=== PATIENT | male | born 1965 | race Caucasian/White ===

== ENCOUNTER 2020-03-17 14:17 | Inpatient (IN) | payer OTHER ==
--- OUTSIDE RECORDS SUMMARY | 2020-03-17 14:26 | XMS ---
:1965 Author Organization [facility] Support Name Relationship Address Phone UE Unavailable Unavailable Unavailable EHSAN COOLEY SISTER [address] [place], [place] Re-disclosure Warning The records that you are about to access may contain information from federally- assisted alcohol or drug abuse programs. If such information is present, then the following federally mandated warning applies: This information has been disclosed to you from records protected by federal confidentiality rules (42 CFR part 2). The federal rules prohibit you from making any further disclosure of this information unless further disclosure is expressly permitted by the written consent of the person to whom it pertains or as otherwise permitted by 42 CFR part 2. A general authorization for the release of medical or other information is NOT sufficient for this purpose. The Federal rules restrict any use of the information to criminally investigate or prosecute any alcohol or drug abuse patient.The records that you are about to access may contain highly sensitive health information, the redisclosure of which is protected by Article 27-F of the [facility] Public Health law. If you continue you may haveaccess to information: Regarding HIV / AIDS; Provided by facilities licensed or operated by the [facility] Office of Mental Health; or Provided by the [facility] Office for People With Developmental Disabilities. If such information is present, then the following [facility] mandated warning applies: This information has been disclosed to you from confidential records which are protected by state law. State law prohibits you from making any further disclosure of this information without the specific written consent of the person to whom it pertains, or as otherwise permitted by law. Any unauthorized further disclosure in violation of state law may result in a fine or retirement sentence or both. A general authorization for the release of medical or other information is NOT sufficient authorization for further disclosure. Insurance Providers Payer name Policy type Policy ID Covered Covered libertarian's Policy P ramone / Coverage libertarian ID relationship to [employer] ormation type burch BEACON [id number] [employer]
--- NOTE | 2020-03-17 14:38 | BHS.RME ---
Substance Use & Tx History - Substance Use History Alcohol Substance amount: 4 quarts malt liquor Frequency of use: Daily Substance route: Oral Date of Last Use: 03/17/20 Cocaine-Crack Substance amount: $100 Frequency of use: Daily Substance route: Smoking Date of Last Use: 03/17/20 Nicotine Substance amount: one half pack Frequency of use: Daily Substance route: Smoking Date of Last Use: 03/17/20 Physical/Psych/Mental Status - Behavior General Behavior: Increased activity (restlessness, agitation) Eye Contact: Normal - Cooperativeness Cooperativeness: Cooperative - Thinking Thought Processes: Tight Thought content: Future oriented - Physical Health Problems Is patient presently having any pain?: No Does patient presently have any injuries (include location): No Does patient currently have a fever: No CIWA Nausea/Vomitin-No Nausea/No Vomiting Muscle Tremors: 1-None Visible, but [place] Anxiety: 3 Agitation: 4-Moderately Restless Paroxysmal Sweats: No Perspiration Orientation: 1-Uncertain about Date Tacttile Disturbances: 0-None Auditory Disturbances: 0-None Visual Disturbances: 0-None Headache: 3-Moderate CIWA-Ar Total Score: 12
[2020-03-17 15:53] VITALS: BMI 17.9
--- OUTSIDE RECORDS SUMMARY | 2020-03-17 16:14 | XMS ---
:1965 Author Organization [facility] Support Name Relationship Address Phone UE Unavailable Unavailable Unavailable EHSAN COOLEY SISTER [address] [place], [place] Re-disclosure Warning The records that [...] is protected by Article 27-F of the [facility] Public Health law. If you continue you may haveaccess to information: Regarding HIV / AIDS; Provided by facilities licensed or operated by the [facility] Office of Mental Health; or Provided by the [facility] Office for People With Developmental Disabilities. If such information is present, then the following [facility] mandated warning applies: This information has been [...] law may result in a fine or chcf sentence or both. A general authorization for the release of medical or other information is NOT sufficient authorization for further disclosure. Insurance Providers Payer name Policy type Policy ID Covered Covered constitution party's Policy P ramone / Coverage constitution party ID relationship to [employer] type burch BEACON [id number] [address] [employer]
--- NOTE | 2020-03-17 16:43 | HP ---
CIWA Score Nausea/Vomitin-No Nausea/No Vomiting Muscle Tremors: 1-None Visible, but [place] Anxiety: 3 Agitation: 4-Moderately Restless Paroxysmal Sweats: No Perspiration Orientation: 1-Uncertain about Date Tacttile Disturbances: 0-None Auditory Disturbances: 0-None Visual Disturbances: 0-None Headache: 3-Moderate CIWA-Ar Total Score: 12 - Admission Criteria OASAS Guidelines: Admission for Medically Managed Detox: Requires at least one of the followin. CIWA greater than 12 2. Seizures within the past 24 hours 3. Delirium tremens within the past 24 hours 4. Hallucinations within the past 24 hours 5. Acute intervention needed for co occurring medical disorder 6. Acute intervention needed for co occurring psychiatric disorder 7. Severe withdrawal that cannot be handled at a lower level of care (continued vomiting, continued diarrhea, abnormal vital signs) requiring intravenous medication and/or fluids 8. Admitting History and Physical - Admission Chief Complaint: I want to get my life back on track. History of Present Illness: Mr. Ortez is a 54 with history of HTN ( non complaint with medication), angina, alcohol, crack, and nicotine use disorder presents here for alcohol detox. Started drinking alcohol since age 16 years old. Currently drinking 4 quarts of malt liquor daily, last drink was earlier this morning. Denies seizure or blackout but admits to eyeopener. Patient currently enrolled in [facility] at [facility]. Also admits to using $100 of Crack (smoking) daily. History Source: Patient Limitations to Obtaining History: No Limitations - Past Medical History Cardiovascular: Yes: HTN (Angina) - Past Surgical History Past Surgical History: Yes: None - Smoking History Smoking history: Current every day smoker Have you smoked in the past 12 months: Yes Aproximately how many cigarettes per day: 10 - Alcohol/Substance Use Hx Alcohol Use: Yes Number of Drinks Daily: 4 History of Substance Use: reports: Cocaine - Social History Usual Living Arrangement: Yes: Alone (homeless) Do you think of yourself as: Straight/Heterosexual ADL: Independent History of Recent Travel: No Admission ROS [facility] Allergies/Adverse Reactions: Allergies Allergy/AdvReac Type Severity Reaction Status Date / Time No Known Allergies Allergy Verified 03/17/20 15:47 History of Present Illness: Mr. Ortez is a 54 with history of HTN ( non complaint with medication), angina, alcohol, crack, and nicotine use disorder presents here for alcohol detox. Started drinking alcohol since age 16 years old. Currently drinking 4 quarts of malt liquor daily, last drink was earlier this morning. Denies seizure or blackout but admits to eyeopener. Patient currently enrolled in [facility] at [facility]. Also admits to using $100 of Crack (smoking) daily. Exam Limitations: No Limitations - Ebola screening Have you traveled outside of the country in the last 21 days: No Have you had contact with anyone from an Ebola affected area: No Have you been sick,other than usual withdrawal symptoms: No Do you have a fever: No - Review of Systems Constitutional: Weakness, Unintentional Wgt. Loss, Unexplained wgt Loss (lost about 40 pounds) EENT: reports: No Symptoms Reported Respiratory: reports: No Symptoms reported GI: reports: Diarrhea, Poor Appetite : reports: No Symptoms Reported Musculoskeletal: reports: No Symptoms Reported Integumentary: reports: No Symptoms Reported Neuro: reports: Headache, Tremors Endocrine: reports: No Symptoms Reported Psychiatric: reports: Orientated x3, Anxious Other Systems: Reviewed and Negative Patient History - Patient Medical History Hx Asthma: No Hx Chronic Obstructive Pulmonary Disease (COPD): No Hx Cardiac Disorders: Yes (Hx angina) Hx Hypertension: Yes (no meds.) Hx Seizures: No Hx Diabetes: No Hx Gastrointestinal Disorders: No Hx Genitourinary Disorders: No Hx Sexually Transmitted Disorders: No Hx Renal Disease (ESRD): No Hx Depression: No Hx Suicide Attempt: No Hx Schizophrenia: No - Patient Surgical History Past Surgical History: No - PPD History Previous Implant?: Yes Documented Results: Negative w/o proof Implanted On Prior R Admission?: No PPD to be Administered?: Yes - Reproductive History Patient is a Female of Child Bearing Age (11 -55 yrs old): No Patient : No (male) - Smoking Cessation Smoking history: Current every day smoker Have you smoked in the past 12 months: Yes Aproximately how many cigarettes per day: 10 Hx Chewing Tobacco Use: No Initiated information on smoking cessation: Yes 'Breaking Loose' booklet given: 03/17/20 - Substances abused Alcohol Other (specify): malt liquor Substance route: Oral Frequency: Daily Amount used: 4 quarts Age of first use: 16 Date of last use: 03/17/20 Crack Substance route: Smoking Frequency: Daily Amount used: $100 Age of first use: 20 Date of last use: 03/17/20 Admission Physical Exam [facility] - Vital Signs Vital Signs: Vital Signs - 24 hr 03/17/20 15:51 Temperature 97.3 F L Pulse Rate 54 L Respiratory 12 Rate Blood Pressure 135/97 - Physical General Appearance: Yes: Appropriately Dressed, Cachetic, Thin, Irritable, Anxious HEENTM: Yes: Within Normal Limits, EOMI, Normocephalic Respiratory: Yes: Within Normal Limits Neck: Yes: Within Normal Limits Breast: Yes: Breast Exam Deferred Cardiology: Yes: Regular Rhythm, Regular Rate, S1, S2 Abdominal: Yes: Flat, Increased Bowel Sounds Genitourinary: Yes: Within Normal Limits Back: Yes: Within Normal Limits, Normal Inspection Musculoskeletal: Yes: Within Normal Limits, full range of Motion Extremities: Yes: Within Normal Limits, Normal Capillary Refill Neurological: Yes: Within Normal Limits, Fully Oriented, Motor Strength 5/5, Normal Mood/Affect Integumentary: Yes: Within Normal Limits, Normal Color - Diagnostic (1) Alcohol dependence with uncomplicated withdrawal Current Visit: Yes Status: Acute (2) Cocaine dependence Current Visit: Yes Status: Chronic (3) Nicotine dependence Current Visit: Yes Status: Chronic (4) Opioid dependence on agonist therapy Current Visit: Yes Status: Chronic Cleared for Admission [facility] - Detox or Rehab [facility] Level of Care: Medically Managed Detox Regimen/Protocol: Librium Claeared for Rehab Admission: No Breathalyzer - Breathalyzer Breathalyzer: 0 Urine Drug Screen - Test Device Lot number: [id number] Expiration date: 09/09/21 - Control Is test valid?: Yes - Results Drug screen NEGATIVE: No Urine drug screen results: THC-Marijuana, NICHOLAS-Cocaine, MTD-Methadone Inpatient Rehab Admission - Rehab Decision to Admit Inpatient rehab admission?: No
[2020-03-17] MEDS ORDERED: IBUPROFEN 400 MG TABLET (FP) PO PRN (17:00)
[2020-03-17] MEDS ORDERED: NICOTINE POLACRILEX 2 MG GUM BUC PRN (17:00)
[2020-03-17] MEDS ORDERED: BISMUTH SUBSALICYLATE 524 MG/30 ML UD PO PRN (17:00)
[2020-03-17] MEDS ORDERED: ACETAMINOPHEN 325 MG TABLET (FP) PO PRN ×2 (17:00)
[2020-03-17] MEDS ORDERED: MENTHOL/PHENOL 1 EACH UD MM PRN (17:00)
[2020-03-17] MEDS ORDERED: MAGNESIUM CITRATE 300 ML BOTTLE PO PRN (17:00)
[2020-03-17] MEDS ORDERED: ONDANSETRON *ODT* 4 MG TABLET SL PRN (17:00)
[2020-03-17] MEDS ORDERED: MAG HYDROX/AL HYDROX/SIMETH 30 ML UNIT-DOSE CUP PO PRN (17:00)
[2020-03-17] MEDS ORDERED: chlordiazePOXIDE HCL 25 MG CAPSULE PO PRN (17:00)
[2020-03-17] MEDS ORDERED: MAGNESIUM HYDROX 2400MG/30ML ORAL SUSPENSION 30 ML CUP PO PRN (17:00)
[2020-03-17] MEDS ORDERED: hydrOXYzine PAMOATE 25 MG CAPSULE (FP) PO PRN (17:00)
[2020-03-17] MEDS ORDERED: METHOCARBAMOL 500 MG TABLET PO PRN (17:00)
[2020-03-17] MEDS: chlordiazePOXIDE HCL 25 MG CAPSULE PO SCH ×2 (18:55→22:11)
[2020-03-17] MEDS: MELATONIN 5 MG TABLETS PO SCH (22:12)
[2020-03-17] MEDS: THIAMINE HCL 100 MG TABLET (FP) PO SCH (22:13)
[2020-03-18] MEDS: chlordiazePOXIDE HCL 25 MG CAPSULE PO SCH ×4 (07:09→22:54)
--- NOTE | 2020-03-18 08:51 | PN ---
S CIWA - CIWA Score Nausea/Vomitin Muscle Tremors: 3 Anxiety: 3 Agitation: 3 Paroxysmal Sweats: 1-Minimal Palms Moist Orientation: 0-Oriented Tacttile Disturbances: 1-Very Mild Itch/Numbness Auditory Disturbances: 0-None Visual Disturbances: 0-None Headache: 2-Mild CIWA-Ar Total Score: 15 BHS Progress Note (SOAP) Subjective: alert,irritable,anxious,interrupted sleep,tremor,aching pain Objective: 03/18/20 13:00 Vital Signs Temperature 96.9 F L 03/18/20 08:36 Pulse Rate 55 L 03/18/20 08:36 Respiratory Rate 16 03/18/20 08:36 Blood Pressure 120/54 L 03/18/20 08:36 O2 Sat by Pulse Oximetry (%) 97 03/18/20 08:36 Laboratory Last Values WBC 8.7 K/mm3 (4.0-10.0) 03/18/20 07:00 RBC 3.82 M/mm3 (4.00-5.60) L 03/18/20 07:00 Hgb 11.9 GM/dL (11.7-16.9) 03/18/20 07:00 Hct 35.2 % (35.4-49) L 03/18/20 07:00 MCV 92.1 fl (80-96) 03/18/20 07:00 MCH 31.1 pg (25.7-33.7) 03/18/20 07:00 MCHC 33.8 g/dl (32.0-35.9) 03/18/20 07:00 RDW 14.1 % (11.9-15.9) 03/18/20 07:00 Plt Count 181 K/MM3 (134-434) 03/18/20 07:00 MPV 9.2 fl (7.5-11.1) 03/18/20 07:00 Sodium 140 mmol/L (136-145) 03/18/20 07:00 Potassium 4.8 mmol/L (3.5-5.1) 03/18/20 07:00 Chloride 106 mmol/L (98-107) 03/18/20 07:00 Carbon Dioxide 30 mmol/L (21-32) 03/18/20 07:00 Anion Gap 3 MMOL/L (8-16) L 03/18/20 07:00 BUN 27.0 mg/dL (7-18) H 03/18/20 07:00 Creatinine 0.7 mg/dL (0.55-1.3) 03/18/20 07:00 Est GFR (CKD-EPI)AfAm 124.00 03/18/20 07:00 Est GFR (CKD-EPI)NonAf 106.99 03/18/20 07:00 Random Glucose 86 mg/dL (74-106) 03/18/20 07:00 Calcium 8.3 mg/dL (8.5-10.1) L 03/18/20 07:00 Total Bilirubin 0.2 mg/dL (0.2-1) 03/18/20 07:00 AST 40 U/L (15-37) H 03/18/20 07:00 ALT 45 U/L (13-61) 03/18/20 07:00 Alkaline Phosphatase 72 U/L (45-117) 03/18/20 07:00 Total Protein 5.5 g/dl (6.4-8.2) L 03/18/20 07:00 Albumin 2.9 g/dl (3.4-5.0) L 03/18/20 07:00 Syphilis Serology Non-reactive (NONREACTIVE) 03/17/20 07:00 HIV Ag/Ab Combo Qual Negative (NEGATIVE) 03/18/20 07:00 Assessment: 03/18/20 13:01 withdrawal symptom Plan: continue detox librium regimen,bun 27 probably due to dehydration,encourage oral fluid,repeat bun in am
[2020-03-18] MEDS ORDERED: METHADONE HCL 10 MG TABLET PO SCH (10:00)
[2020-03-18] MEDS ORDERED: METHADONE HCL 40 MG DISPERSABLE TABLET ONE (10:07)
[2020-03-18] MEDS ORDERED: METHADONE HCL 10 MG TABLET ONE (10:07)
[2020-03-18] MEDS: METHADONE 120 MG, METHADONE 20 MG PO SCH (10:08)
[2020-03-18] MEDS: PRENATAL VITAMINS W/ FOLIC ACID TABLET (FP) PO SCH (10:11)
[2020-03-18] MEDS: NICOTINE 7 MG/24 HOURS TOPICAL PATCH TD SCH (10:11)
[2020-03-18 10:13] LABS: HEMATOCRIT 35.2 % (35.4-49); HEMOGLOBIN 11.9 GM/dL (11.7-16.9); MCH 31.1 pg (25.7-33.7); MCHC 33.8 g/dl (32.0-35.9); MEAN CELL VOLUME 92.1 fl (80-96); MEAN PLT VOLUME 9.2 fl (7.5-11.1); PLATELET COUNT 181 K/MM3 (134-434); RBC 3.82 M/mm3 (4.00-5.60); RDW 14.1 % (11.9-15.9); WHITE BLOOD COUNT 8.7 K/mm3 (4.0-10.0)
[2020-03-18 10:21] LABS: ALBUMIN 2.9 g/dl (3.4-5.0); BILIRUBIN,TOTAL 0.2 mg/dL (0.2-1); CALCIUM 8.3 mg/dL (8.5-10.1); CREATININE 0.7 mg/dL (0.55-1.3); POTASSIUM 4.8 mmol/L (3.5-5.1); TOT PROT 5.5 g/dl (6.4-8.2)
--- NOTE | 2020-03-18 13:39 | EKG ---
Test Reason : Blood Pressure : / mmHG Vent. Rate : 049 BPM Atrial Rate : 049 BPM P-R Int : 118 ms QRS Dur : 088 ms QT Int : 530 ms P-R-T Axes : 078 077 081 degrees QTc Int : 478 ms SINUS BRADYCARDIA WITH PREMATURE SUPRAVENTRICULAR COMPLEXES OTHERWISE NORMAL ECG NO PREVIOUS ECGS AVAILABLE Confirmed by DELIA HARDY, JAYDA ([id number]) on 03/18/2020 1:39:16 PM Referred By: Confirmed By:JAYDA LIN MD
[2020-03-18] MEDS: THIAMINE HCL 100 MG TABLET (FP) PO SCH (22:54)
[2020-03-18] MEDS: MELATONIN 5 MG TABLETS PO SCH (22:54)
[2020-03-19] MEDS ORDERED: METHADONE HCL 10 MG TABLET ONE (04:16)
[2020-03-19] MEDS ORDERED: METHADONE HCL 40 MG DISPERSABLE TABLET ONE (04:16)
[2020-03-19] MEDS: chlordiazePOXIDE HCL 25 MG CAPSULE PO SCH ×4 (05:23→23:11)
[2020-03-19] MEDS: METHADONE 120 MG, METHADONE 20 MG PO SCH (05:23)
--- NOTE | 2020-03-19 10:29 | PN ---
[facility] CIWA - CIWA Score Nausea/Vomitin-Mild Nausea/No Vomiting Muscle Tremors: 2 Anxiety: 3 Agitation: 3 Paroxysmal Sweats: No Perspiration Orientation: 0-Oriented Tacttile Disturbances: 1-Very Mild Itch/Numbness Auditory Disturbances: 0-None Visual Disturbances: 0-None Headache: 2-Mild CIWA-Ar Total Score: 12 S Progress Note (SOAP) Subjective: alert,irritable,anxious,interrupted sleep,tremor,aching pain,interrupted sleep Objective: 03/19/20 10:24 Vital Signs Temperature 97.1 F L 03/19/20 08:40 Pulse Rate 53 L 03/19/20 08:40 Respiratory Rate 18 03/19/20 08:40 Blood Pressure 148/89 03/19/20 08:40 O2 Sat by Pulse Oximetry (%) 95 03/19/20 08:40 Laboratory Last Values WBC 8.7 K/mm3 (4.0-10.0) 03/18/20 07:00 RBC 3.82 M/mm3 (4.00-5.60) L 03/18/20 07:00 Hgb 11.9 GM/dL (11.7-16.9) 03/18/20 07:00 Hct 35.2 % (35.4-49) L 03/18/20 07:00 MCV 92.1 fl (80-96) 03/18/20 07:00 MCH 31.1 pg (25.7-33.7) 03/18/20 07:00 MCHC 33.8 g/dl (32.0-35.9) 03/18/20 07:00 RDW 14.1 % (11.9-15.9) 03/18/20 07:00 Plt Count 181 K/MM3 (134-434) 03/18/20 07:00 MPV 9.2 fl (7.5-11.1) 03/18/20 07:00 Sodium 140 mmol/L (136-145) 03/18/20 07:00 Potassium 4.8 mmol/L (3.5-5.1) 03/18/20 07:00 Chloride 106 mmol/L (98-107) 03/18/20 07:00 Carbon Dioxide 30 mmol/L (21-32) 03/18/20 07:00 Anion Gap 3 MMOL/L (8-16) L 03/18/20 07:00 BUN 20.7 mg/dL (7-18) H 03/19/20 07:50 Creatinine 0.7 mg/dL (0.55-1.3) 03/18/20 07:00 Est GFR (CKD-EPI)AfAm 124.00 03/18/20 07:00 Est GFR (CKD-EPI)NonAf 106.99 03/18/20 07:00 Random Glucose 86 mg/dL (74-106) 03/18/20 07:00 Calcium 8.3 mg/dL (8.5-10.1) L 03/18/20 07:00 Total Bilirubin 0.2 mg/dL (0.2-1) 03/18/20 07:00 AST 40 U/L (15-37) H 03/18/20 07:00 ALT 45 U/L (13-61) 03/18/20 07:00 Alkaline Phosphatase 72 U/L (45-117) 03/18/20 07:00 Total Protein 5.5 g/dl (6.4-8.2) L 03/18/20 07:00 Albumin 2.9 g/dl (3.4-5.0) L 03/18/20 07:00 Syphilis Serology Non-reactive (NONREACTIVE) 03/17/20 07:00 COVID-19 ([facility]) Not detected (Not Detected) 03/17/20 16:00 HIV Ag/Ab Combo Qual Negative (NEGATIVE) 03/18/20 07:00 03/19/20 10:28 repeat bun is 20.7 Assessment: 03/19/20 10:29 withdrawal symptom Plan: continue detox lirium regimen,encourage oral fluid,continue methadone maintenance 140 mgs/day
[2020-03-19] MEDS: NICOTINE 7 MG/24 HOURS TOPICAL PATCH TD SCH (10:31)
[2020-03-19] MEDS: PRENATAL VITAMINS W/ FOLIC ACID TABLET (FP) PO SCH (10:31)
[2020-03-19] MEDS: THIAMINE HCL 100 MG TABLET (FP) PO SCH (23:11)
[2020-03-19] MEDS: MELATONIN 5 MG TABLETS PO SCH (23:11)
[2020-03-20] MEDS ORDERED: chlordiazePOXIDE HCL 10 MG CAPSULE PO PRN
[2020-03-20] MEDS ORDERED: METHADONE HCL 40 MG DISPERSABLE TABLET ONE (03:43)
[2020-03-20] MEDS ORDERED: METHADONE HCL 10 MG TABLET ONE (03:43)
[2020-03-20] MEDS: METHADONE 120 MG, METHADONE 20 MG PO SCH (05:09)
[2020-03-20] MEDS: chlordiazePOXIDE HCL 10 MG CAPSULE PO SCH ×4 (05:10→22:29)
[2020-03-20] MEDS: NICOTINE 7 MG/24 HOURS TOPICAL PATCH TD SCH (10:11)
[2020-03-20] MEDS: PRENATAL VITAMINS W/ FOLIC ACID TABLET (FP) PO SCH (10:11)
--- NOTE | 2020-03-20 16:37 | PN ---
[facility] CIWA - CIWA Score Nausea/Vomitin-No Nausea/No Vomiting Muscle Tremors: None Anxiety: 4-Mod. Anxious/Guarded Agitation: 4-Moderately Restless Paroxysmal Sweats: 2 Orientation: 0-Oriented Tacttile Disturbances: 2-Mild Itch/Numbness/Burn Auditory Disturbances: 0-None Visual Disturbances: 0-None Headache: 0-None Present CIWA-Ar Total Score: 12 S Progress Note (SOAP) Subjective: Anxious, Restless, Interrupted sleep, Body Aches. Objective: Patient A & O X 3, Observed Ambulating on Detox Unit Unassisted. In No Acute Distress. 03/20/20 16:35 Vital Signs Temperature 97.8 F 03/20/20 12:20 Pulse Rate 73 03/20/20 12:20 Respiratory Rate 18 03/20/20 12:20 Blood Pressure 134/81 03/20/20 12:20 O2 Sat by Pulse Oximetry (%) 95 03/20/20 12:20 Laboratory Tests 03/17/20 03/17/20 03/18/20 07:00 16:00 07:00 WBC RBC Hgb Hct MCV MCH MCHC RDW Plt Count MPV Sodium Potassium Chloride Carbon Dioxide Anion Gap BUN Creatinine Est GFR (CKD-EPI)AfAm Est GFR (CKD-EPI)NonAf Random Glucose Calcium Total Bilirubin AST ALT Alkaline Phosphatase Total Protein Albumin Syphilis Serology Non-reactive COVID-19 ([facility]) Not detected HIV Ag/Ab Combo Qual Negative 03/18/20 03/18/20 03/19/20 07:00 07:00 07:50 WBC 8.7 RBC 3.82 L Hgb 11.9 Hct 35.2 L MCV 92.1 MCH 31.1 MCHC 33.8 RDW 14.1 Plt Count 181 MPV 9.2 Sodium 140 Potassium 4.8 Chloride 106 Carbon Dioxide 30 Anion Gap 3 L BUN 27.0 H 20.7 H Creatinine 0.7 Est GFR (CKD-EPI)AfAm 124.00 Est GFR (CKD-EPI)NonAf 106.99 Random Glucose 86 Calcium 8.3 L Total Bilirubin 0.2 AST 40 H ALT 45 Alkaline Phosphatase 72 Total Protein 5.5 L Albumin 2.9 L Syphilis Serology COVID-19 ([facility]) HIV Ag/Ab Combo Qual Lab Results noted. Assessment: 03/20/20 16:37 WITHDRAWAL SYMPTOMS. ELEVATED AST LEVEL. Plan: Continue Detox. Increase Daily Oral Water Intake.
[2020-03-20] MEDS: THIAMINE HCL 100 MG TABLET (FP) PO SCH (22:28)
[2020-03-20] MEDS: MELATONIN 5 MG TABLETS PO SCH (22:29)
[2020-03-21] MEDS ORDERED: METHADONE HCL 40 MG DISPERSABLE TABLET ONE (04:09)
[2020-03-21] MEDS ORDERED: METHADONE HCL 10 MG TABLET ONE (04:09)
[2020-03-21] MEDS: METHADONE 120 MG, METHADONE 20 MG PO SCH (05:05)
[2020-03-21] MEDS: chlordiazePOXIDE HCL 10 MG CAPSULE PO SCH ×2 (06:22→18:11)
[2020-03-21] MEDS: PRENATAL VITAMINS W/ FOLIC ACID TABLET (FP) PO SCH (10:06)
[2020-03-21] MEDS: NICOTINE 7 MG/24 HOURS TOPICAL PATCH TD SCH (10:06)
--- NOTE | 2020-03-21 11:20 | PN ---
[facility] CIWA - CIWA Score Nausea/Vomitin-No Nausea/No Vomiting Muscle Tremors: None Anxiety: 2 Agitation: 1-Slight > Activity Paroxysmal Sweats: 1-Minimal Palms Moist Orientation: 0-Oriented Tacttile Disturbances: 0-None Auditory Disturbances: 0-None Visual Disturbances: 0-None Headache: 0-None Present CIWA-Ar Total Score: 4 BHS Progress Note (SOAP) Subjective: Complaints of mild anxiety and sweats. Objective: 03/21/20 11:18 Vital Signs 03/21/20 03/21/20 06:10 08:55 Temperature 97.3 F L 97.3 F L Pulse Rate 55 L 59 L Respiratory 18 17 Rate Blood Pressure 137/79 140/97 O2 Sat by Pulse 97 97 Oximetry (%) Laboratory Last Values WBC 8.7 K/mm3 (4.0-10.0) 03/18/20 07:00 RBC 3.82 M/mm3 (4.00-5.60) L 03/18/20 07:00 Hgb 11.9 GM/dL (11.7-16.9) 03/18/20 07:00 Hct 35.2 % (35.4-49) L 03/18/20 07:00 MCV 92.1 fl (80-96) 03/18/20 07:00 MCH 31.1 pg (25.7-33.7) 03/18/20 07:00 MCHC 33.8 g/dl (32.0-35.9) 03/18/20 07:00 RDW 14.1 % (11.9-15.9) 03/18/20 07:00 Plt Count 181 K/MM3 (134-434) 03/18/20 07:00 MPV 9.2 fl (7.5-11.1) 03/18/20 07:00 Sodium 140 mmol/L (136-145) 03/18/20 07:00 Potassium 4.8 mmol/L (3.5-5.1) 03/18/20 07:00 Chloride 106 mmol/L (98-107) 03/18/20 07:00 Carbon Dioxide 30 mmol/L (21-32) 03/18/20 07:00 Anion Gap 3 MMOL/L (8-16) L 03/18/20 07:00 BUN 20.7 mg/dL (7-18) H 10/16/20 07:50 Creatinine 0.7 mg/dL (0.55-1.3) 03/18/20 07:00 Est GFR (CKD-EPI)AfAm 124.00 03/18/20 07:00 Est GFR (CKD-EPI)NonAf 106.99 03/18/20 07:00 Random Glucose 86 mg/dL (74-106) 03/18/20 07:00 Calcium 8.3 mg/dL (8.5-10.1) L 03/18/20 07:00 Total Bilirubin 0.2 mg/dL (0.2-1) 03/18/20 07:00 AST 40 U/L (15-37) H 03/18/20 07:00 ALT 45 U/L (13-61) 03/18/20 07:00 Alkaline Phosphatase 72 U/L (45-117) 03/18/20 07:00 Total Protein 5.5 g/dl (6.4-8.2) L 03/18/20 07:00 Albumin 2.9 g/dl (3.4-5.0) L 03/18/20 07:00 Syphilis Serology Non-reactive (NONREACTIVE) 03/17/20 07:00 COVID-19 ([facility]) Not detected (Not Detected) 03/17/20 16:00 HIV Ag/Ab Combo Qual Negative (NEGATIVE) 03/18/20 07:00 Labs noted. Assessment: 03/21/20 11:19 Alert and oriented x3, in no acute respiratory distress. Full ROM, ambulating in unit without any assistance. Skin warm to touch without lesions. Mild withdrawal symptoms. Plan: Continue detox protocol. D/C in AM.
[2020-03-21] MEDS: THIAMINE HCL 100 MG TABLET (FP) PO SCH (22:08)
[2020-03-21] MEDS: MELATONIN 5 MG TABLETS PO SCH (22:08)
[2020-03-22] MEDS ORDERED: METHADONE HCL 10 MG TABLET ONE (03:09)
[2020-03-22] MEDS ORDERED: METHADONE HCL 40 MG DISPERSABLE TABLET ONE (03:09)
[2020-03-22] MEDS ORDERED: chlordiazePOXIDE HCL 10 MG CAPSULE PO ONE (05:00)
[2020-03-22] MEDS: METHADONE 120 MG, METHADONE 20 MG PO SCH (05:15)
--- NOTE | 2020-03-22 09:09 | DS ---
[facility] Detox Discharge Summary Admission Date: 03/17/20 Discharge Date: 03/22/20 - History Present History: Alcohol Dependence, Cocaine Dependence - Physical Exam Results Vital Signs: Vital Signs Temperature 98.0 F 03/22/20 05:11 Pulse Rate 46 L 03/22/20 05:11 Respiratory Rate 16 03/22/20 05:11 Blood Pressure 146/82 03/22/20 05:11 O2 Sat by Pulse Oximetry (%) 94 L 03/22/20 05:11 Pertinent Admission Physical Exam Findings: Vital Signs Temperature 98.0 F 03/22/20 05:11 Pulse Rate 46 L 03/22/20 05:11 Respiratory Rate 16 03/22/20 05:11 Blood Pressure 146/82 03/22/20 05:11 O2 Sat by Pulse Oximetry (%) 94 L 03/22/20 05:11 Laboratory Tests 03/17/20 03/17/20 03/18/20 07:00 16:00 07:00 WBC RBC Hgb Hct MCV MCH MCHC RDW Plt Count MPV Sodium Potassium Chloride Carbon Dioxide Anion Gap BUN Creatinine Est GFR (CKD-EPI)AfAm Est GFR (CKD-EPI)NonAf Random Glucose Calcium Total Bilirubin AST ALT Alkaline Phosphatase Total Protein Albumin Syphilis Serology Non-reactive COVID-19 ([facility]) Not detected HIV Ag/Ab Combo Qual Negative 03/18/20 03/18/20 03/19/20 07:00 07:00 07:50 WBC 8.7 RBC 3.82 L Hgb 11.9 Hct 35.2 L MCV 92.1 MCH 31.1 MCHC 33.8 RDW 14.1 Plt Count 181 MPV 9.2 Sodium 140 Potassium 4.8 Chloride 106 Carbon Dioxide 30 Anion Gap 3 L BUN 27.0 H 20.7 H Creatinine 0.7 Est GFR (CKD-EPI)AfAm 124.00 Est GFR (CKD-EPI)NonAf 106.99 Random Glucose 86 Calcium 8.3 L Total Bilirubin 0.2 AST 40 H ALT 45 Alkaline Phosphatase 72 Total Protein 5.5 L Albumin 2.9 L Syphilis Serology COVID-19 ([facility]) HIV Ag/Ab Combo Qual aaox3 ambulating no acute distress lungs CTA - Treatment Hospital Course: Detox Protocol Followed, Detoxed Safely, Responded well, Discharged Condition Good, Rehab Referral Accepted - Medication Discharge Medications: Ambulatory Orders Methadone [Dolophine -] 140 mg PO DAILY 03/17/20 - Diagnosis (1) Alcohol dependence with uncomplicated withdrawal Current Visit: Yes Status: Chronic (2) Elevated aspartate aminotransferase level Current Visit: Yes Status: Acute (3) Cocaine dependence Current Visit: Yes Status: Chronic Qualifiers: Substance use status: uncomplicated Qualified Code(s): F14.20 - Cocaine dependence, uncomplicated (4) Nicotine dependence Current Visit: Yes Status: Chronic Qualifiers: Nicotine product type: cigarettes Substance use status: uncomplicated Qualified Code(s): F17.210 - Nicotine dependence, cigarettes, uncomplicated (5) Opioid dependence on agonist therapy Current Visit: Yes Status: Chronic - AMA Did Patient Leave Against Medical Advice: No
[2020-03-22 09:22] VITALS: BP 98/66; PULSE 60; TEMP 98.4
[2020-03-22] MEDS: NICOTINE 7 MG/24 HOURS TOPICAL PATCH TD SCH (10:03)
[2020-03-22] MEDS: PRENATAL VITAMINS W/ FOLIC ACID TABLET (FP) PO SCH (10:03)
== END 2020-03-22 11:05 | disposition other institution (70) | DRG 773 ==
LOC: YASAS 14:17 → Y6N 15:55
PROVIDERS: ADMIT Allergy & Immunology; ATTEND Allergy & Immunology
PROC: HZ2ZZZZ Detoxification Services for Substance Abuse Treatment (ICD-10-PCS; principal; 2020-03-17)
DX: F10.230 Alcohol dependence with withdrawal, uncomplicated (principal); F11.20 Opioid dependence, uncomplicated; F14.20 Cocaine dependence, uncomplicated; F17.210 Nicotine dependence, cigarettes, uncomplicated; I10 Essential (primary) hypertension; R74.01 Elevation of levels of liver transaminase levels; R63.4 Abnormal weight loss; Z68.1 Body mass index [BMI] 19.9 or less, adult; Z59.0 Homelessness; Z91.14 Patient's other noncompliance with medication regimen; Z86.79 Personal history of other diseases of the circulatory system
CPT/HCPCS: 36415; 80053; 84520; 85027; 86780; 87389; 93005; 93010; C9803; U0003

== ENCOUNTER 2020-11-30 16:05 | Inpatient (IN) | payer OTHER ==
[2020-11-30 19:17] VITALS: BMI 23.1
[2020-11-30] MEDS ORDERED: MAGNESIUM CITRATE 300 ML BOTTLE PO PRN (20:39)
[2020-11-30] MEDS ORDERED: P-EPHED 60MG/TRIPROLIDI 2.5MG TABLET PO PRN (20:39)
[2020-11-30] MEDS ORDERED: IBUPROFEN 400 MG TABLET (FP) PO PRN (20:39)
[2020-11-30] MEDS ORDERED: ACETAMINOPHEN 325 MG TABLET (FP) PO PRN (20:39)
[2020-11-30] MEDS ORDERED: MAGNESIUM HYDROX 2400MG/30ML ORAL SUSPENSION 30 ML CUP PO PRN (20:39)
[2020-11-30] MEDS ORDERED: NICOTINE POLACRILEX 2 MG GUM BC PRN (20:39)
[2020-11-30] MEDS ORDERED: LOPERAMIDE HCL 2 MG CAPSULE PO PRN (20:39)
[2020-11-30] MEDS ORDERED: MAG HYDROX/AL HYDROX/SIMETH 30 ML UNIT-DOSE CUP PO PRN (20:39)
[2020-11-30] MEDS ORDERED: guaiFENesin 200 MG/10 ML 10 ML UNIT-DOSE CUPS PO PRN (20:39)
[2020-11-30] MEDS ORDERED: hydrOXYzine PAMOATE 50 MG CAPSULE (FP) PO PRN (20:41)
[2020-11-30] MEDS: MELATONIN 5 MG TABLETS PO SCH (21:33)
[2020-11-30] MEDS: THIAMINE HCL 100 MG TABLET (FP) PO SCH (21:33)
[2020-11-30] MEDS ORDERED: TUBERCULIN PPD 5 TU/0.1ML VIAL ID ONE (21:35)
[2020-11-30] MEDS ORDERED: VARENICLINE TARTRATE 1 MG TAB PO SCH (22:00)
[2020-11-30] MEDS: ROSUVASTATIN CA 20 MG TABLET (FP) PO SCH (23:35)
[2020-12-01] MEDS ORDERED: methaDONE HCL 10 MG TABLET PO ONE (07:30)
[2020-12-01] MEDS ORDERED: methaDONE HCL 40 MG DISPERSABLE TABLET ONE (07:37)
[2020-12-01] MEDS ORDERED: methaDONE HCL 10 MG TABLET ONE (07:37)
[2020-12-01] MEDS: ISOSORBIDE MONONITRATE 60 MG TAB.SR.24H (FP) PO SCH (09:55)
[2020-12-01] MEDS: ASPIRIN 81 MG CHEWABLE TABLETS PO SCH (09:55)
[2020-12-01] MEDS: amLODIPine BESYLATE 5 MG TABLET (FP) PO SCH (09:55)
[2020-12-01] MEDS: PRENATAL VITAMINS W/ FOLIC ACID TABLET (FP) PO SCH (09:55)
[2020-12-01 10:45] LABS: CALCIUM 9.2 mg/dL (8.5-10.1)
[2020-12-01 10:46] LABS: BLOOD UREA NITROGEN 16.3 mg/dL (7-18); HEMATOCRIT 39.8 % (35.4-49); HEMOGLOBIN 13.4 GM/dL (11.7-16.9); MCH 30.8 pg (25.7-33.7); MCHC 33.8 g/dl (32.0-35.9); MEAN CELL VOLUME 91.4 fl (80-96); MEAN PLT VOLUME 8.8 fl (7.5-11.1); PLATELET COUNT 206 10^3/uL (134-434); RBC 4.36 M/mm3 (4.00-5.60); RDW 13.9 % (11.9-15.9); WHITE BLOOD COUNT 7.1 K/mm3 (4.0-10.0)
[2020-12-01 10:49] LABS: CREATININE 0.7 mg/dL (0.55-1.3)
[2020-12-01 10:50] LABS: BILIRUBIN,TOTAL 0.3 mg/dL (0.2-1); TOT PROT 7.2 g/dl (6.4-8.2)
[2020-12-01] MEDS: ESCITALOPRAM OXALATE 20 MG TABLET PO SCH (14:02)
[2020-12-01 16:25] LABS: URINE APPEARANCE CLEAR; URINE BILIRUBIN NEGATIVE (NEGATIVE); URINE COLOR YELLOW; URINE GLUCOSE (UA) NEGATIVE (NEGATIVE); URINE KETONE NEGATIVE (NEGATIVE); URINE LEUK ESTERASE NEGATIVE (NEGATIVE); URINE NITRITE NEGATIVE (NEGATIVE); URINE PROTEIN NEGATIVE (NEGATIVE)
[2020-12-01] MEDS: THIAMINE HCL 100 MG TABLET (FP) PO SCH (21:21)
[2020-12-01] MEDS: ROSUVASTATIN CA 20 MG TABLET (FP) PO SCH (21:21)
[2020-12-01] MEDS: MELATONIN 5 MG TABLETS PO SCH (21:21)
[2020-12-02] MEDS ORDERED: methaDONE HCL 40 MG DISPERSABLE TABLET ONE (03:23)
[2020-12-02] MEDS ORDERED: methaDONE HCL 10 MG TABLET ONE (03:23)
[2020-12-02] MEDS ORDERED: methaDONE HCL 10 MG TABLET PO SCH (06:00)
[2020-12-02] MEDS: ISOSORBIDE MONONITRATE 60 MG TAB.SR.24H (FP) PO SCH (09:49)
[2020-12-02] MEDS: amLODIPine BESYLATE 5 MG TABLET (FP) PO SCH (09:49)
[2020-12-02] MEDS: ESCITALOPRAM OXALATE 20 MG TABLET PO SCH (09:49)
[2020-12-02] MEDS: PRENATAL VITAMINS W/ FOLIC ACID TABLET (FP) PO SCH (09:49)
[2020-12-02] MEDS: ASPIRIN 81 MG CHEWABLE TABLETS PO SCH (09:49)
[2020-12-02] MEDS: ROSUVASTATIN CA 20 MG TABLET (FP) PO SCH (21:09)
[2020-12-02] MEDS: MELATONIN 5 MG TABLETS PO SCH (21:09)
[2020-12-02] MEDS: THIAMINE HCL 100 MG TABLET (FP) PO SCH (21:09)
[2020-12-03] MEDS ORDERED: methaDONE HCL 10 MG TABLET ONE (03:03)
[2020-12-03] MEDS ORDERED: methaDONE HCL 40 MG DISPERSABLE TABLET ONE (03:03)
[2020-12-03] MEDS: PRENATAL VITAMINS W/ FOLIC ACID TABLET (FP) PO SCH (09:39)
[2020-12-03] MEDS: ISOSORBIDE MONONITRATE 60 MG TAB.SR.24H (FP) PO SCH (09:39)
[2020-12-03] MEDS: amLODIPine BESYLATE 5 MG TABLET (FP) PO SCH (09:39)
[2020-12-03] MEDS: ESCITALOPRAM OXALATE 20 MG TABLET PO SCH (09:39)
[2020-12-03] MEDS: ASPIRIN 81 MG CHEWABLE TABLETS PO SCH (09:39)
[2020-12-03] MEDS: ROSUVASTATIN CA 20 MG TABLET (FP) PO SCH (21:42)
[2020-12-03] MEDS: THIAMINE HCL 100 MG TABLET (FP) PO SCH (21:42)
[2020-12-03] MEDS: MELATONIN 5 MG TABLETS PO SCH (21:42)
[2020-12-04] MEDS ORDERED: methaDONE HCL 10 MG TABLET ONE (03:43)
[2020-12-04] MEDS ORDERED: methaDONE HCL 40 MG DISPERSABLE TABLET ONE (03:43)
[2020-12-04] MEDS: ASPIRIN 81 MG CHEWABLE TABLETS PO SCH (09:40)
[2020-12-04] MEDS: amLODIPine BESYLATE 5 MG TABLET (FP) PO SCH (09:40)
[2020-12-04] MEDS: PRENATAL VITAMINS W/ FOLIC ACID TABLET (FP) PO SCH (09:40)
[2020-12-04] MEDS: ESCITALOPRAM OXALATE 20 MG TABLET PO SCH (09:40)
[2020-12-04] MEDS: ISOSORBIDE MONONITRATE 60 MG TAB.SR.24H (FP) PO SCH (09:40)
[2020-12-04] MEDS: ROSUVASTATIN CA 20 MG TABLET (FP) PO SCH (21:11)
[2020-12-04] MEDS: THIAMINE HCL 100 MG TABLET (FP) PO SCH (21:12)
[2020-12-04] MEDS: MELATONIN 5 MG TABLETS PO SCH (21:12)
[2020-12-05] MEDS ORDERED: methaDONE HCL 40 MG DISPERSABLE TABLET ONE (03:03)
[2020-12-05] MEDS ORDERED: methaDONE HCL 10 MG TABLET ONE (03:03)
[2020-12-05] MEDS: amLODIPine BESYLATE 5 MG TABLET (FP) PO SCH (12:37)
[2020-12-05] MEDS: ISOSORBIDE MONONITRATE 60 MG TAB.SR.24H (FP) PO SCH (12:37)
[2020-12-05] MEDS: ASPIRIN 81 MG CHEWABLE TABLETS PO SCH (12:37)
[2020-12-05] MEDS: ESCITALOPRAM OXALATE 20 MG TABLET PO SCH (12:37)
[2020-12-05] MEDS: PRENATAL VITAMINS W/ FOLIC ACID TABLET (FP) PO SCH (12:38)
[2020-12-05] MEDS: ROSUVASTATIN CA 20 MG TABLET (FP) PO SCH (21:59)
[2020-12-05] MEDS: THIAMINE HCL 100 MG TABLET (FP) PO SCH (21:59)
[2020-12-05] MEDS: MELATONIN 5 MG TABLETS PO SCH (21:59)
[2020-12-06] MEDS ORDERED: methaDONE HCL 40 MG DISPERSABLE TABLET ONE (03:04)
[2020-12-06] MEDS ORDERED: methaDONE HCL 10 MG TABLET ONE (03:05)
[2020-12-06] MEDS: PRENATAL VITAMINS W/ FOLIC ACID TABLET (FP) PO SCH (09:52)
[2020-12-06] MEDS: amLODIPine BESYLATE 5 MG TABLET (FP) PO SCH (09:53)
[2020-12-06] MEDS: ISOSORBIDE MONONITRATE 60 MG TAB.SR.24H (FP) PO SCH (09:53)
[2020-12-06] MEDS: ESCITALOPRAM OXALATE 20 MG TABLET PO SCH (09:53)
[2020-12-06] MEDS: ASPIRIN 81 MG CHEWABLE TABLETS PO SCH (09:53)
[2020-12-06] MEDS: ROSUVASTATIN CA 20 MG TABLET (FP) PO SCH (22:45)
[2020-12-06] MEDS: MELATONIN 5 MG TABLETS PO SCH (22:45)
[2020-12-06] MEDS: THIAMINE HCL 100 MG TABLET (FP) PO SCH (22:45)
[2020-12-07] MEDS ORDERED: methaDONE HCL 40 MG DISPERSABLE TABLET ONE (03:18)
[2020-12-07] MEDS ORDERED: methaDONE HCL 10 MG TABLET ONE (03:19)
[2020-12-07] MEDS: ESCITALOPRAM OXALATE 20 MG TABLET PO SCH (09:38)
[2020-12-07] MEDS: ASPIRIN 81 MG CHEWABLE TABLETS PO SCH (09:38)
[2020-12-07] MEDS: amLODIPine BESYLATE 5 MG TABLET (FP) PO SCH (09:38)
[2020-12-07] MEDS: ISOSORBIDE MONONITRATE 60 MG TAB.SR.24H (FP) PO SCH (09:38)
[2020-12-07] MEDS: PRENATAL VITAMINS W/ FOLIC ACID TABLET (FP) PO SCH (09:38)
[2020-12-07] MEDS: ROSUVASTATIN CA 20 MG TABLET (FP) PO SCH (21:50)
[2020-12-07] MEDS: MELATONIN 5 MG TABLETS PO SCH (21:50)
[2020-12-07] MEDS: THIAMINE HCL 100 MG TABLET (FP) PO SCH (21:50)
[2020-12-08] MEDS ORDERED: methaDONE HCL 10 MG TABLET ONE (04:20)
[2020-12-08] MEDS ORDERED: methaDONE HCL 40 MG DISPERSABLE TABLET ONE (04:20)
[2020-12-08] MEDS: amLODIPine BESYLATE 5 MG TABLET (FP) PO SCH (10:02)
[2020-12-08] MEDS: ISOSORBIDE MONONITRATE 60 MG TAB.SR.24H (FP) PO SCH (10:02)
[2020-12-08] MEDS: ESCITALOPRAM OXALATE 20 MG TABLET PO SCH (10:02)
[2020-12-08] MEDS: PRENATAL VITAMINS W/ FOLIC ACID TABLET (FP) PO SCH (10:02)
[2020-12-08] MEDS: ASPIRIN 81 MG CHEWABLE TABLETS PO SCH (10:02)
[2020-12-08] MEDS: MELATONIN 5 MG TABLETS PO SCH (21:04)
[2020-12-08] MEDS: THIAMINE HCL 100 MG TABLET (FP) PO SCH (21:04)
[2020-12-08] MEDS: ROSUVASTATIN CA 20 MG TABLET (FP) PO SCH (21:05)
[2020-12-09] MEDS ORDERED: methaDONE HCL 40 MG DISPERSABLE TABLET ONE (03:44)
[2020-12-09] MEDS ORDERED: methaDONE HCL 10 MG TABLET ONE (03:45)
[2020-12-09] MEDS: PRENATAL VITAMINS W/ FOLIC ACID TABLET (FP) PO SCH (09:36)
[2020-12-09] MEDS: ISOSORBIDE MONONITRATE 60 MG TAB.SR.24H (FP) PO SCH (09:36)
[2020-12-09] MEDS: ESCITALOPRAM OXALATE 20 MG TABLET PO SCH (09:36)
[2020-12-09] MEDS: amLODIPine BESYLATE 5 MG TABLET (FP) PO SCH (09:37)
[2020-12-09] MEDS: ASPIRIN 81 MG CHEWABLE TABLETS PO SCH (09:37)
[2020-12-09] MEDS: ROSUVASTATIN CA 20 MG TABLET (FP) PO SCH (21:55)
[2020-12-09] MEDS: THIAMINE HCL 100 MG TABLET (FP) PO SCH (21:55)
[2020-12-09] MEDS: MELATONIN 5 MG TABLETS PO SCH (21:55)
[2020-12-10] MEDS ORDERED: methaDONE HCL 40 MG DISPERSABLE TABLET ONE (04:04)
[2020-12-10] MEDS ORDERED: methaDONE HCL 10 MG TABLET ONE (04:04)
[2020-12-10] MEDS: ISOSORBIDE MONONITRATE 60 MG TAB.SR.24H (FP) PO SCH (09:34)
[2020-12-10] MEDS: PRENATAL VITAMINS W/ FOLIC ACID TABLET (FP) PO SCH (09:34)
[2020-12-10] MEDS: ASPIRIN 81 MG CHEWABLE TABLETS PO SCH (09:34)
[2020-12-10] MEDS: amLODIPine BESYLATE 5 MG TABLET (FP) PO SCH (09:34)
[2020-12-10] MEDS: ESCITALOPRAM OXALATE 20 MG TABLET PO SCH (09:34)
[2020-12-10] MEDS: MELATONIN 5 MG TABLETS PO SCH (22:45)
[2020-12-10] MEDS: ROSUVASTATIN CA 20 MG TABLET (FP) PO SCH (22:45)
[2020-12-10] MEDS: THIAMINE HCL 100 MG TABLET (FP) PO SCH (22:45)
[2020-12-11] MEDS ORDERED: methaDONE HCL 40 MG DISPERSABLE TABLET ONE (05:18)
[2020-12-11] MEDS ORDERED: methaDONE HCL 10 MG TABLET ONE (05:19)
[2020-12-11] MEDS: ESCITALOPRAM OXALATE 20 MG TABLET PO SCH (09:35)
[2020-12-11] MEDS: ASPIRIN 81 MG CHEWABLE TABLETS PO SCH (09:35)
[2020-12-11] MEDS: PRENATAL VITAMINS W/ FOLIC ACID TABLET (FP) PO SCH (09:35)
[2020-12-11] MEDS: ISOSORBIDE MONONITRATE 60 MG TAB.SR.24H (FP) PO SCH (09:35)
[2020-12-11] MEDS: amLODIPine BESYLATE 5 MG TABLET (FP) PO SCH (09:36)
[2020-12-11] MEDS: THIAMINE HCL 100 MG TABLET (FP) PO SCH (23:39)
[2020-12-11] MEDS: ROSUVASTATIN CA 20 MG TABLET (FP) PO SCH (23:39)
[2020-12-11] MEDS: MELATONIN 5 MG TABLETS PO SCH (23:39)
[2020-12-12] MEDS ORDERED: methaDONE HCL 40 MG DISPERSABLE TABLET ONE (03:35)
[2020-12-12] MEDS ORDERED: methaDONE HCL 10 MG TABLET ONE (03:35)
[2020-12-12] MEDS: amLODIPine BESYLATE 5 MG TABLET (FP) PO SCH (09:32)
[2020-12-12] MEDS: ESCITALOPRAM OXALATE 20 MG TABLET PO SCH (09:32)
[2020-12-12] MEDS: ASPIRIN 81 MG CHEWABLE TABLETS PO SCH (09:32)
[2020-12-12] MEDS: ISOSORBIDE MONONITRATE 60 MG TAB.SR.24H (FP) PO SCH (09:32)
[2020-12-12] MEDS: PRENATAL VITAMINS W/ FOLIC ACID TABLET (FP) PO SCH (09:33)
[2020-12-12] MEDS: THIAMINE HCL 100 MG TABLET (FP) PO SCH (21:09)
[2020-12-12] MEDS: MELATONIN 5 MG TABLETS PO SCH (21:09)
[2020-12-12] MEDS: ROSUVASTATIN CA 20 MG TABLET (FP) PO SCH (21:09)
[2020-12-13] MEDS ORDERED: methaDONE HCL 10 MG TABLET ONE (03:10)
[2020-12-13] MEDS ORDERED: methaDONE HCL 40 MG DISPERSABLE TABLET ONE (03:10)
[2020-12-13] MEDS: ASPIRIN 81 MG CHEWABLE TABLETS PO SCH (10:18)
[2020-12-13] MEDS: ISOSORBIDE MONONITRATE 60 MG TAB.SR.24H (FP) PO SCH (10:18)
[2020-12-13] MEDS: PRENATAL VITAMINS W/ FOLIC ACID TABLET (FP) PO SCH (10:18)
[2020-12-13] MEDS: ESCITALOPRAM OXALATE 20 MG TABLET PO SCH (10:18)
[2020-12-13] MEDS: amLODIPine BESYLATE 5 MG TABLET (FP) PO SCH (10:18)
[2020-12-13] MEDS: ROSUVASTATIN CA 20 MG TABLET (FP) PO SCH (22:07)
[2020-12-13] MEDS: THIAMINE HCL 100 MG TABLET (FP) PO SCH (22:07)
[2020-12-13] MEDS: MELATONIN 5 MG TABLETS PO SCH (22:07)
[2020-12-14] MEDS ORDERED: methaDONE HCL 10 MG TABLET ONE (03:01)
[2020-12-14] MEDS ORDERED: methaDONE HCL 40 MG DISPERSABLE TABLET ONE (03:01)
[2020-12-14] MEDS: amLODIPine BESYLATE 5 MG TABLET (FP) PO SCH (09:46)
[2020-12-14] MEDS: PRENATAL VITAMINS W/ FOLIC ACID TABLET (FP) PO SCH (09:46)
[2020-12-14] MEDS: ASPIRIN 81 MG CHEWABLE TABLETS PO SCH (09:46)
[2020-12-14] MEDS: ISOSORBIDE MONONITRATE 60 MG TAB.SR.24H (FP) PO SCH (09:46)
[2020-12-14] MEDS: ESCITALOPRAM OXALATE 20 MG TABLET PO SCH (09:46)
[2020-12-14] MEDS: THIAMINE HCL 100 MG TABLET (FP) PO SCH (21:06)
[2020-12-14] MEDS: MELATONIN 5 MG TABLETS PO SCH (21:06)
[2020-12-14] MEDS: ROSUVASTATIN CA 20 MG TABLET (FP) PO SCH (21:06)
[2020-12-15] MEDS ORDERED: methaDONE HCL 10 MG TABLET ONE (03:27)
[2020-12-15] MEDS ORDERED: methaDONE HCL 40 MG DISPERSABLE TABLET ONE (03:27)
[2020-12-15] MEDS: PRENATAL VITAMINS W/ FOLIC ACID TABLET (FP) PO SCH (09:53)
[2020-12-15] MEDS: ASPIRIN 81 MG CHEWABLE TABLETS PO SCH (09:53)
[2020-12-15] MEDS: ISOSORBIDE MONONITRATE 60 MG TAB.SR.24H (FP) PO SCH (09:53)
[2020-12-15] MEDS: ESCITALOPRAM OXALATE 20 MG TABLET PO SCH (09:53)
[2020-12-15] MEDS: amLODIPine BESYLATE 5 MG TABLET (FP) PO SCH (09:53)
[2020-12-15] MEDS: ROSUVASTATIN CA 20 MG TABLET (FP) PO SCH (21:42)
[2020-12-15] MEDS: MELATONIN 5 MG TABLETS PO SCH (21:42)
[2020-12-15] MEDS: THIAMINE HCL 100 MG TABLET (FP) PO SCH (21:42)
[2020-12-16] MEDS ORDERED: methaDONE HCL 40 MG DISPERSABLE TABLET ONE (03:01)
[2020-12-16] MEDS ORDERED: methaDONE HCL 10 MG TABLET ONE (03:01)
[2020-12-16] MEDS: ASPIRIN 81 MG CHEWABLE TABLETS PO SCH (09:31)
[2020-12-16] MEDS: ISOSORBIDE MONONITRATE 60 MG TAB.SR.24H (FP) PO SCH (09:31)
[2020-12-16] MEDS: ESCITALOPRAM OXALATE 20 MG TABLET PO SCH (09:31)
[2020-12-16] MEDS: PRENATAL VITAMINS W/ FOLIC ACID TABLET (FP) PO SCH (09:32)
[2020-12-16] MEDS: amLODIPine BESYLATE 5 MG TABLET (FP) PO SCH (09:32)
[2020-12-16] MEDS: ROSUVASTATIN CA 20 MG TABLET (FP) PO SCH (21:03)
[2020-12-16] MEDS: MELATONIN 5 MG TABLETS PO SCH (21:03)
[2020-12-16] MEDS: THIAMINE HCL 100 MG TABLET (FP) PO SCH (21:03)
[2020-12-17] MEDS ORDERED: methaDONE HCL 10 MG TABLET ONE (03:20)
[2020-12-17] MEDS ORDERED: methaDONE HCL 40 MG DISPERSABLE TABLET ONE (03:20)
[2020-12-17] MEDS: PRENATAL VITAMINS W/ FOLIC ACID TABLET (FP) PO SCH (09:35)
[2020-12-17] MEDS: ASPIRIN 81 MG CHEWABLE TABLETS PO SCH (09:35)
[2020-12-17] MEDS: ISOSORBIDE MONONITRATE 60 MG TAB.SR.24H (FP) PO SCH (09:35)
[2020-12-17] MEDS: ESCITALOPRAM OXALATE 20 MG TABLET PO SCH (09:35)
[2020-12-17] MEDS: amLODIPine BESYLATE 5 MG TABLET (FP) PO SCH (09:35)
[2020-12-17] MEDS ORDERED: COVID-19 VAC,AD26(JANSSEN)/PF 0.5 ML IM ONE (10:00)
[2020-12-17] MEDS ORDERED: ROSUVASTATIN CA 10 MG TABLET (FP) ONE (20:20)
[2020-12-17] MEDS: MELATONIN 5 MG TABLETS PO SCH (21:55)
[2020-12-17] MEDS: ROSUVASTATIN CA 20 MG TABLET (FP) PO SCH (21:56)
[2020-12-17] MEDS: THIAMINE HCL 100 MG TABLET (FP) PO SCH (21:56)
[2020-12-18] MEDS ORDERED: methaDONE HCL 40 MG DISPERSABLE TABLET ONE (03:14)
[2020-12-18] MEDS ORDERED: methaDONE HCL 10 MG TABLET ONE (03:15)
[2020-12-18] MEDS: amLODIPine BESYLATE 5 MG TABLET (FP) PO SCH (09:58)
[2020-12-18] MEDS: ESCITALOPRAM OXALATE 20 MG TABLET PO SCH (09:58)
[2020-12-18] MEDS: PRENATAL VITAMINS W/ FOLIC ACID TABLET (FP) PO SCH (09:58)
[2020-12-18] MEDS: ISOSORBIDE MONONITRATE 60 MG TAB.SR.24H (FP) PO SCH (09:58)
[2020-12-18] MEDS: ASPIRIN 81 MG CHEWABLE TABLETS PO SCH (09:58)
[2020-12-18] MEDS: THIAMINE HCL 100 MG TABLET (FP) PO SCH (21:02)
[2020-12-18] MEDS: ROSUVASTATIN CA 20 MG TABLET (FP) PO SCH (21:02)
[2020-12-18] MEDS: MELATONIN 5 MG TABLETS PO SCH (21:02)
[2020-12-19] MEDS ORDERED: methaDONE HCL 40 MG DISPERSABLE TABLET ONE (02:55)
[2020-12-19] MEDS ORDERED: methaDONE HCL 10 MG TABLET ONE (02:56)
[2020-12-19] MEDS: PRENATAL VITAMINS W/ FOLIC ACID TABLET (FP) PO SCH (09:28)
[2020-12-19] MEDS: amLODIPine BESYLATE 5 MG TABLET (FP) PO SCH (09:28)
[2020-12-19] MEDS: ESCITALOPRAM OXALATE 20 MG TABLET PO SCH (09:28)
[2020-12-19] MEDS: ISOSORBIDE MONONITRATE 60 MG TAB.SR.24H (FP) PO SCH (09:28)
[2020-12-19] MEDS: ASPIRIN 81 MG CHEWABLE TABLETS PO SCH (09:28)
[2020-12-19] MEDS: THIAMINE HCL 100 MG TABLET (FP) PO SCH (21:29)
[2020-12-19] MEDS: MELATONIN 5 MG TABLETS PO SCH (21:29)
[2020-12-19] MEDS: ROSUVASTATIN CA 20 MG TABLET (FP) PO SCH (21:29)
[2020-12-20] MEDS ORDERED: methaDONE HCL 10 MG TABLET ONE (03:16)
[2020-12-20] MEDS ORDERED: methaDONE HCL 40 MG DISPERSABLE TABLET ONE (03:16)
[2020-12-20] MEDS: ASPIRIN 81 MG CHEWABLE TABLETS PO SCH (09:38)
[2020-12-20] MEDS: amLODIPine BESYLATE 5 MG TABLET (FP) PO SCH (09:39)
[2020-12-20] MEDS: ISOSORBIDE MONONITRATE 60 MG TAB.SR.24H (FP) PO SCH (09:39)
[2020-12-20] MEDS: ESCITALOPRAM OXALATE 20 MG TABLET PO SCH (09:39)
[2020-12-20] MEDS: PRENATAL VITAMINS W/ FOLIC ACID TABLET (FP) PO SCH (09:39)
[2020-12-20] MEDS: THIAMINE HCL 100 MG TABLET (FP) PO SCH (21:19)
[2020-12-20] MEDS: ROSUVASTATIN CA 20 MG TABLET (FP) PO SCH (21:19)
[2020-12-20] MEDS: MELATONIN 5 MG TABLETS PO SCH (21:19)
[2020-12-21] MEDS ORDERED: methaDONE HCL 40 MG DISPERSABLE TABLET ONE (03:14)
[2020-12-21] MEDS ORDERED: methaDONE HCL 10 MG TABLET ONE (03:14)
[2020-12-21] MEDS: ESCITALOPRAM OXALATE 20 MG TABLET PO SCH (09:36)
[2020-12-21] MEDS: amLODIPine BESYLATE 5 MG TABLET (FP) PO SCH (09:36)
[2020-12-21] MEDS: ISOSORBIDE MONONITRATE 60 MG TAB.SR.24H (FP) PO SCH (09:36)
[2020-12-21] MEDS: ASPIRIN 81 MG CHEWABLE TABLETS PO SCH (09:36)
[2020-12-21] MEDS: PRENATAL VITAMINS W/ FOLIC ACID TABLET (FP) PO SCH (09:36)
[2020-12-21] MEDS: ROSUVASTATIN CA 20 MG TABLET (FP) PO SCH (21:41)
[2020-12-21] MEDS: THIAMINE HCL 100 MG TABLET (FP) PO SCH (21:41)
[2020-12-21] MEDS: MELATONIN 5 MG TABLETS PO SCH (21:42)
[2020-12-22] MEDS ORDERED: methaDONE HCL 10 MG TABLET ONE (03:10)
[2020-12-22] MEDS ORDERED: methaDONE HCL 40 MG DISPERSABLE TABLET ONE (03:10)
[2020-12-22] MEDS: ISOSORBIDE MONONITRATE 60 MG TAB.SR.24H (FP) PO SCH (09:43)
[2020-12-22] MEDS: PRENATAL VITAMINS W/ FOLIC ACID TABLET (FP) PO SCH (09:43)
[2020-12-22] MEDS: ASPIRIN 81 MG CHEWABLE TABLETS PO SCH (09:43)
[2020-12-22] MEDS: amLODIPine BESYLATE 5 MG TABLET (FP) PO SCH (09:43)
[2020-12-22] MEDS: ESCITALOPRAM OXALATE 20 MG TABLET PO SCH (09:43)
[2020-12-22] MEDS: ROSUVASTATIN CA 20 MG TABLET (FP) PO SCH (21:02)
[2020-12-22] MEDS: THIAMINE HCL 100 MG TABLET (FP) PO SCH (21:03)
[2020-12-22] MEDS: MELATONIN 5 MG TABLETS PO SCH (21:03)
[2020-12-23] MEDS ORDERED: methaDONE HCL 10 MG TABLET ONE (03:06)
[2020-12-23] MEDS ORDERED: methaDONE HCL 40 MG DISPERSABLE TABLET ONE (03:06)
[2020-12-23 06:51] VITALS: BP 142/92; PULSE 62; TEMP 97.8
[2020-12-23] MEDS: PRENATAL VITAMINS W/ FOLIC ACID TABLET (FP) PO SCH (09:08)
[2020-12-23] MEDS: ESCITALOPRAM OXALATE 20 MG TABLET PO SCH (09:08)
[2020-12-23] MEDS: ISOSORBIDE MONONITRATE 60 MG TAB.SR.24H (FP) PO SCH (09:08)
[2020-12-23] MEDS: amLODIPine BESYLATE 5 MG TABLET (FP) PO SCH (09:08)
[2020-12-23] MEDS: ASPIRIN 81 MG CHEWABLE TABLETS PO SCH (09:08)
== END 2020-12-23 09:17 | disposition home or self-care (01) | DRG 772 ==
LOC: YASAS 16:05 → Y3W 20:36
PROVIDERS: ADMIT Allergy & Immunology; ATTEND Allergy & Immunology
PROC: HZ42ZZZ Group Counseling for Substance Abuse Treatment, Cognitive-Behavioral (ICD-10-PCS; principal; 2020-11-30)
DX: F11.20 Opioid dependence, uncomplicated (principal); F14.20 Cocaine dependence, uncomplicated; F10.20 Alcohol dependence, uncomplicated; F41.9 Anxiety disorder, unspecified; E78.5 Hyperlipidemia, unspecified; I25.119 Atherosclerotic heart disease of native coronary artery with unspecified angina pectoris; I10 Essential (primary) hypertension; Z87.891 Personal history of nicotine dependence; I25.2 Old myocardial infarction; R07.89 Other chest pain; R00.1 Bradycardia, unspecified
CPT/HCPCS: 0031A; 36415; 80053; 81003; 85027; 86780; 91303; 93005; 93010; C9803; U0003; U0005